=== PATIENT | male | born 1960 | race Caucasian/White ===

== ENCOUNTER 2020-12-17 07:32 | Observation (INO) | payer OTHER ==
[~2020-12-17] VITALS: Ht 182.9 cm; Wt 87.3 kg
[~2020-12-17 07:32] MED LIST: EPINEPHRINE 1 MG/ML, 1ML ONE; KETOROLAC 60 MG/2 ML ONE; ROPIvacaine/PF 0.2%, 20 ML ONE; SODIUM CHLORIDE 0.9% 50 ML ONE; TRANEXAMIC ACID 100 MG/ML, 10ML ONE; VANCOMYCIN 1,000 MG ONE
[2020-12-17] MEDS ORDERED: CHLORHEXIDINE 15 ML UDC PO ONE (08:30)
[2020-12-17] MEDS ORDERED: LACTATED RINGERS 1,000 ML IV SCH (08:30)
[2020-12-17] MEDS ORDERED: VANCOMYCIN PER PHARMACY MC ONE (08:30)
[2020-12-17] MEDS ORDERED: CEFAZOLIN PMX 1GM/50ML 50 ML IV ONE (08:30)
[2020-12-17] MEDS ORDERED: PLEASE ENTER HEIGHT AND WEIGHT MC SCH (08:30)
[2020-12-17] MEDS ORDERED: PLEASE ENTER ALLERGIES MC SCH (08:30)
[2020-12-17] MEDS ORDERED: CELE100C PO (08:56)
[2020-12-17] MEDS ORDERED: BUPR1FIL3 PO (08:56)
[2020-12-17] MEDS ORDERED: OXYcodone/APAP 5/325MG TABLET PO PRN (09:00)
[2020-12-17] MEDS ORDERED: ACETAMINOPHEN 500 MG TABLET PO ONE (09:00)
[2020-12-17] MEDS ORDERED: HYDROcodone/APAP 5/325 TABLET PO PRN (09:00)
[2020-12-17] MEDS ORDERED: CEFAZOLIN PMX 1GM/50ML 50 ML IVPB SCH (09:00)
[2020-12-17] MEDS ORDERED: PROMETHAZINE 25 MG/ML, 1ML IM PRN (09:00)
[2020-12-17] MEDS ORDERED: DEXAMETHASONE 4 MG/ML, 1ML IVPush ONE (09:00)
[2020-12-17] MEDS ORDERED: HYDROmorphone 1 MG/ML, 1ML INJ IVPush PRN ×2 (09:00→12:00)
[2020-12-17] MEDS ORDERED: ONDANSETRON 4 MG TABLET PO PRN (09:00)
[2020-12-17] MEDS ORDERED: OXYcodone 5 MG/5 ML ORAL.SOL UDC PO PRN ×2 (09:00→12:00)
[2020-12-17] MEDS ORDERED: DIAZEPAM 5 MG TABLET PO PRN (09:00)
[2020-12-17] MEDS ORDERED: DIPHENHYDRAMINE 50 MG/ML, 1ML IVPush PRN ×3 (09:00→12:00)
[2020-12-17] MEDS ORDERED: VANCOMYCIN 1,600 MG in SODIUM CHLORIDE 0.9% 250 ML IV ONE (10:00)
[2020-12-17] MEDS ORDERED: KETAMINE 10 MG/ML, 20ML ONE (10:53)
[2020-12-17] MEDS ORDERED: MIDAZOLAM 1 MG/ML, 2ML ONE (10:55)
[2020-12-17] MEDS ORDERED: FENTANYL PF 250 MCG/5ML ONE (10:55)
[2020-12-17] MEDS ORDERED: DEXAMETHASONE 4 MG/ML, 1ML ONE ×2 (11:00→11:09)
[2020-12-17] MEDS ORDERED: ONDANSETRON 2MG/ML, 2ML ONE (11:00)
[2020-12-17] MEDS ORDERED: PROPOFOL 10 MG/ML, 20ML ONE (11:00)
[2020-12-17] MEDS ORDERED: CEFAZOLIN 1,000 MG ONE ×2 (11:00→11:09)
[2020-12-17] MEDS ORDERED: BUPRENORPHINE HCL/NALOXONE 8-2MG FILM SL SCH (11:00)
[2020-12-17] MEDS ORDERED: SUCCINYLCHOLINE 20 MG/ML, 10ML ONE (11:00)
[2020-12-17] MEDS ORDERED: ROPIvacaine/PF 0.5%, 30 ML ONE (11:45)
[2020-12-17] MEDS ORDERED: MIDAZOLAM 1 MG/ML, 2ML IV PRN (12:00)
[2020-12-17] MEDS ORDERED: PROMETHAZINE 25 MG/ML, 1ML IVPush PRN (12:00)
[2020-12-17] MEDS ORDERED: MEPERIDINE/PF 25MG/0.5ML IVPush PRN (12:00)
[2020-12-17] MEDS ORDERED: ONDANSETRON 2MG/ML, 2ML IVPush PRN (12:00)
[2020-12-17] MEDS ORDERED: PROMETHAZINE 12.5 MG SUPP PR PRN (12:00)
[2020-12-17] MEDS ORDERED: DIAZEPAM 5 MG/ML, 2ML IVPush PRN (12:00)
[2020-12-17] MEDS ORDERED: EPHEDRINE 50 MG/ML, 1ML IVPush PRN (12:00)
[2020-12-17] MEDS ORDERED: ALBUTEROL SULFATE 2.5 MG/3 ML NPPB PRN (12:00)
[2020-12-17] MEDS ORDERED: LABETALOL 5MG/ML, 20ML IV PRN (12:00)
[2020-12-17] MEDS ORDERED: FENTANYL PF 100 MCG/2ML IV PRN (12:00)
[2020-12-17] MEDS ORDERED: hydrALAzine 20 MG/ML, 1ML IV PRN (12:00)
[2020-12-17] MEDS ORDERED: TRANEXAMIC ACID 1,000 MG in SODIUM CHLORIDE 0.9% 100 ML IVPB ONE (12:54)
[2020-12-17 13:50] VITALS: BP 117/74
[2020-12-17 16:23] LABS: CELLS COUNTED 86
[2020-12-17] MEDS: KETOROLAC 30 MG/1 ML IV SCH (16:50)
[2020-12-17] MEDS: DOCUSATE 100 MG CAPSULE PO SCH ×2 (16:51→21:00)
[2020-12-17] MEDS: CEFAZOLIN PMX 1GM/50ML 50 ML IVPB SCH (18:43)
[2020-12-17 20:24] VITALS: BP 104/73
[2020-12-17] MEDS ORDERED: HYDROmorphone 2 MG/ML, 1ML ONE (22:39)
[2020-12-18 00:08] VITALS: BP 108/64
[2020-12-18] MEDS: KETOROLAC 30 MG/1 ML IV SCH ×2 (01:18→07:45)
[2020-12-18] MEDS: CEFAZOLIN PMX 1GM/50ML 50 ML IVPB SCH (02:56)
[2020-12-18 03:54] VITALS: BP 104/65
[2020-12-18] MEDS ORDERED: DEXAMETHASONE 4 MG/ML, 1ML IVPush ONE (06:00)
[2020-12-18] MEDS ORDERED: ASPIRIN 81 MG TABLET EC PO SCH ×2 (06:00→18:00)
[2020-12-18 07:30] VITALS: BP 110/63
[2020-12-18] MEDS ORDERED: KETOROLAC 30 MG/1 ML ONE (07:44)
[2020-12-18] MEDS: DOCUSATE 100 MG CAPSULE PO SCH (07:45)
[2020-12-18] MEDS ORDERED: HYDROCHLOROTHIAZIDE 12.5 MG CAPSULE PO SCH (09:00)
[2020-12-18] MEDS ORDERED: LISINOPRIL 20 MG TABLET PO SCH (09:00)
== END 2020-12-18 11:00 | disposition home or self-care (01) ==
LOC: OUT 07:32 → 4NE 13:38 → OUT 23:05 → 4NE 23:06
PROVIDERS: ADMIT Orthopaedic Surgery; ATTEND Orthopaedic Surgery
DX: T84.033A Mechanical loosening of internal left knee prosthetic joint, initial encounter (principal); Z20.822 Contact with and (suspected) exposure to COVID-19; Z96.659 Presence of unspecified artificial knee joint; Z88.0 Allergy status to penicillin; Z79.899 Other long term (current) drug therapy
CPT/HCPCS: 27331; 27350; 73560; 87070; 87075; 87205; 87635; 89051; 96365; 96366; 96375; 96376; 97161; G0378; J0171; J0690; J1100; J1170; J1885; J2250; J2795; J3010; J3370; J7050; J7120; J2405; J2704; J0330